=== PATIENT | male | born 1960 | race Caucasian/White ===

== ENCOUNTER 2017-05-16 09:48 | Day surgery (SDC) | payer OTHER ==
[~2017-05-16 09:48] MED LIST: Acetaminophen TAB* 325 MG PO PRN; Buffered Lidocaine 0.9% SYRIN* 5 ML/SYR SYRINGE INTRADERM ONE; DiMENhydriNATE IV* 50 MG/ML VIAL IV PUSH PRN; HYDROcodone/ACETAMIN 5-325 MG* 1 TAB PO PRN; Levalbuterol 0.63MG/3ML NEB* UNIT OF USE INH PRN; Ondansetron INJ* 2 MG/ML VIAL IV PRN; PROCHLORPERAZINE INJ 5 MG/ML 2 ML VIAL IV PRN; fentaNYL* 50 MCG/ML 2 ML VIAL (100 MCG VIAL) IV PRN
[2017-05-16] MEDS ORDERED: Buffered Lidocaine 0.9% SYRIN* 5 ML/SYR SYRINGE ONE (10:10)
[2017-05-16] MEDS ORDERED: Midazolam* 1 MG/ML 2 ML VIAL (2 MG) ONE ×2 (12:34→13:32)
[2017-05-16] MEDS ORDERED: Famotidine IV* 10 MG/ML 2 ML (20 mg) ONE (12:36)
[2017-05-16] MEDS ORDERED: Triamcinolone Acetonide* 40 MG/ML 1 ML VIAL ONE (13:19)
[2017-05-16] MEDS ORDERED: Lidocaine 1% MPF wEPI 200,000* 30 ML SDV ONE (13:19)
[2017-05-16] MEDS ORDERED: Lidocaine 1% INJ* 10 MG/ML 30 ML SDV ONE (13:20)
[2017-05-16] MEDS ORDERED: Lidocaine 2% PF * 5 ML VIAL ONE (13:29)
[2017-05-16] MEDS ORDERED: Ondansetron INJ* 2 MG/ML VIAL ONE (13:30)
[2017-05-16] MEDS ORDERED: Dexamethasone IV* 4 MG/ML 1 ML (4 MG) ONE (13:30)
[2017-05-16] MEDS ORDERED: Propofol* 10 MG/ML 20 ML BTL IV PUSH ONE (13:30)
[2017-05-16] MEDS ORDERED: Rocuronium* 10 MG/ML VIAL ONE (13:30)
[2017-05-16] MEDS ORDERED: fentaNYL* 50 MCG/ML 2 ML VIAL (100 MCG VIAL) ONE (13:32)
[2017-05-16] MEDS ORDERED: Levalbuterol 0.63MG/3ML NEB* UNIT OF USE INH ONE (14:18)
[2017-05-16] MEDS ORDERED: Neostigmine Methylsulfate* 2 MG/2 ML SYRINGE ONE (14:23)
[2017-05-16] MEDS ORDERED: Glycopyrrolate IV* 0.2 MG/ML 1 ML VIAL ONE (14:23)
[2017-05-16] MEDS ORDERED: Ibuprofen TAB* 400 MG ONE (15:54)
[2017-05-16] MEDS ORDERED: Ibuprofen TAB* 200 MG ONE (15:55)
[2017-05-16 17:12] VITALS: BP 133/85
--- NOTE | 2017-05-17 05:31 | OP ---
DATE OF OPERATION: 05/16/17 - [facility] DATE OF : 64 SURGEON: Dr. Roy. ANESTHESIOLOGIST: Dr. Uriostegui ANESTHESIA: General PRE-OP DIAGNOSIS: Hoarseness with left vocal fold granuloma. POST-OP DIAGNOSIS: Hoarseness with left vocal fold granuloma, OPERATIVE PROCEDURE: Excision of left vocal fold granuloma under microlaryngoscopy. BRIEF HISTORY: This is a 56-year-old gentleman with a longstanding history of hoarseness, identified to have a large granuloma, elected for surgical management. DESCRIPTION OF PROCEDURE: The patient was taken to the operating room. General anesthetic was given, the patient was intubated. suspended, microscope was utilized, obvious granuloma was identified. 2% lidocaine with 200,000 epinephrine was infiltrated into the mucosa. Small incision in the mucosa was carried out. Only a small defect of the mucosa was noted. I injected around the area with Kenalog 40 mg/mL total of approximately 0.5 mL. Small piece of pledget was placed for hemostasis. Once the patient was to be extubated the pledget was removed. The patient was extubated and sent to recovery room in stable condition. Instrument and sponge count correct. Blood loss minimal. [id number] #: [id number] MTDD
== END 2017-05-16 16:20 | disposition home or self-care (01) ==
LOC: OR 09:48
PROVIDERS: ATTEND Otolaryngology
DX: J38.1 Polyp of vocal cord and larynx (principal); R49.0 Dysphonia; Z87.891 Personal history of nicotine dependence
CPT/HCPCS: 88305; 88313; A9270-GY; J1100; J2001; J2250; J2405; J2704; J3010; J3301; J7614